=== PATIENT | male | born 1975 | race Caucasian/White ===

== ENCOUNTER 2019-04-19 04:58 | Inpatient (IN) | payer OTHER ==
[2019-04-19] MEDS ORDERED: SODIUM CHLORIDE 0.9% 1,000 ML IV ONE ×2 (05:22→06:50)
--- NOTE | 2019-04-19 05:25 | ED Physician Documentation ---
PD HPI ABD PAIN - Stated complaint Stated Complaint: BLOATING/DIARRHEA - Chief complaint Chief Complaint: Abd Pain - History obtained from History obtained from: Patient, Family - History of Present Illness Timing - onset: How many days ago (3) Timing - duration: Days (3) Timing - details: Gradual onset, Still present Quality: Cramping, Sharp, Fullness/distended, Pain Location: All over / everywhere Improved by: Laying still Worsened by: Position, Palpation Associated symptoms: Diarrhea. No: Fever, Nausea, Vomiting Similar symptoms before: Has not had sx before Recently seen: Not recently seen - Additional information Additional information: 43-year-old male with a history of diabetes has developed acute diarrhea and abdominal bloating gas and pain. He has generalized pain he has not had specific pain similar to this previously. He does not recall eating anything that he is sensitive to and he has not noted any blood in his diarrhea. He has not been into see his doctor in over 2 years and he is on some diabetic medications. He has been checking his sugar recently has been about 200. Review of Systems Constitutional: reports: Fatigue. denies: Fever, Chills Eyes: denies: Decreased vision Ears: denies: Ear pain Throat: denies: Sore throat Cardiac: denies: Chest pain / pressure, Palpitations Respiratory: denies: Dyspnea, Cough GI: reports: Abdominal Pain, Abdominal Swelling, Diarrhea. denies: Nausea, Vomiting, Bloody / black stool : denies: Dysuria, Frequency Skin: denies: Rash Musculoskeletal: denies: Neck pain, Back pain, Extremity pain Neurologic: denies: Generalized weakness, Focal weakness, Numbness PD PAST MEDICAL HISTORY - Past Medical History Cardiovascular: Hypertension Respiratory: CPAP use Endocrine/Autoimmune: Type 2 diabetes GI: None : None HEENT: None Psych: None Musculoskeletal: None Derm: None - Past Surgical History Past Surgical History: No - Present Medications Home Medications: Ambulatory Orders Medication Instructions Recorded Confirmed Lisinopril 0.5 mg PO DAILY 03/31/16 Glipizide [Glipizide Xl] 0.5 mg PO DAILY 04/19/19 04/19/19 - Allergies Allergies/Adverse Reactions: Allergies Allergy/AdvReac Type Severity Reaction Status Date / Time metformin Allergy Unknown Verified 04/19/19 05:04 - Social History Does the pt smoke?: No Smoking Status: Never smoker Does the pt drink ETOH?: No Does the pt have substance abuse?: No - Immunizations Immunizations are current?: Yes - POLST Patient has POLST: No PD ED PE NORMAL - Vitals Vital signs reviewed: Yes (hypertensive ) - General General: Alert and oriented X 3, Well developed/nourished, Other (welfare centre manager tone and flat affect belie pain) - HEENT HEENT: Atraumatic, PERRL, EOMI - Neck Neck: Supple, no meningeal sign, No bony TTP - Cardiac Cardiac: RRR, No murmur - Respiratory Respiratory: No respiratory distress, Clear bilaterally - Abdomen Abdomen: Other (The abdomen is distended bowel sounds are scant, it generally tender without guarding or rebound. ) - Back Back: No CVA TTP, No spinal TTP - Derm Derm: Normal color, Warm and dry, No rash - Extremities Extremities: No deformity, No edema, No calf tenderness / cord - Neuro Neuro: Alert and oriented X 3, commercial announcer 2-12 intact, No motor deficit, No sensory deficit, Normal speech Eye Opening: Spontaneous Motor: Obeys Commands Verbal: Oriented GCS Score: 15 - Psych Psych: Normal mood, Other (affect is flat.) Results - Vitals Vitals: Vital Signs - 24 hr 04/19/19 04/19/19 05:01 06:12 Temperature 35.9 C L Heart Rate 96 84 Respiratory 18 Rate Blood Pressure 158/98 H 146/99 H O2 Saturation 97 97 Oxygen O2 Source Room air - Labs Labs: Laboratory Tests 04/19/19 04/19/19 04/19/19 05:20 05:20 05:20 WBC 5.2 RBC 5.40 Hgb 15.4 Hct 44.0 MCV 81.4 MCH 28.5 MCHC 35.0 RDW 12.9 Plt Count 245 MPV 6.6 L Neut # (Auto) 3.3 Lymph # (Auto) 1.2 L [place] # (Auto) 0.6 Eos # (Auto) 0.1 Baso # (Auto) 0.0 Absolute Nucleated RBC 0.00 Nucleated RBC % 0.1 Sodium 135 Potassium 3.7 Chloride 101 Carbon Dioxide 23 Anion Gap 11.0 BUN 13 Creatinine 0.7 Estimated GFR (MDRD) 122 Glucose 272 H Lactic Acid Calcium 8.8 Total Bilirubin 1.3 H AST 118 H ALT 112 H Alkaline Phosphatase 119 Troponin I < 0.04 Total Protein 7.0 Albumin 3.7 Globulin 3.3 Albumin/Globulin Ratio 1.1 Lipase 25 04/19/19 05:36 WBC RBC Hgb Hct MCV MCH MCHC RDW Plt Count MPV Neut # (Auto) Lymph # (Auto) [place] # (Auto) Eos # (Auto) Baso # (Auto) Absolute Nucleated RBC Nucleated RBC % Sodium Potassium Chloride Carbon Dioxide Anion Gap BUN Creatinine Estimated GFR (MDRD) Glucose Lactic Acid 0.8 Calcium Total Bilirubin AST ALT Alkaline Phosphatase Troponin I Total Protein Albumin Globulin Albumin/Globulin Ratio Lipase - Rads (name of study) CT abd/pel with Radiology: Prelim report reviewed (Impression: Small bowel dilation, with an abrupt transition in the distal ileum, suggestive of mechanical obstruction. Moderate amount of free fluid in the pelvis. Normal appendix.), EMP read indepedently, See rad report Procedures - IVC sono (time) 0520 Bedside IVC sono: IVC measures (cm) (0.83), IVC collapsed c insp (cm) (complete), Dehydration (est 2 liter deficit.) PD MEDICAL DECISION MAKING - ED course Complexity details: reviewed old records, reviewed results, re-evaluated patient, considered differential, d/w patient, d/w family ED course: 43-year-old type II diabetic male with diarrhea abdominal pain and bloating is dehydrated on interrogation of the inferior vena cava and is administered intravenous saline. He is not nauseated he has not had any blood in his stool he does have pain in general and a CT scan is ordered. CT shows obstruction at the distal illeum and free fluid in the pelvis with deflated colon. The surgeon Olivier is consulted in the case by phone and recommends admission to the hospitalist. Departure - Departure Disposition: 66 [facility] DC/Xfer Clinical Impression: Dehydration, Small bowel obstruction
[2019-04-19 05:29] LABS: BASOPHILS % (AUTO) 0.5 %; EOSINOPHILS # (AUTO) 0.1 10^3/uL (0.0-0.7); HGB - HEMOGLOBIN 15.4 g/dL (14.0-18.0); LYMPHOCYTES # (AUTO) 1.2 10^3/uL (1.5-3.5); LYMPHOCYTES % (AUTO) 22.4 %; MEAN CORPUSCULAR HEMOGLOBIN 28.5 pg (27.0-31.0); MEAN CORPUSCULAR VOLUME 81.4 fL (80.0-94.0); MEAN PLATELET VOLUME 6.6 fL (7.4-11.4); MONOCYTES # (AUTO) 0.6 10^3/uL (0.0-1.0); NEUTROPHILS # (AUTO) 3.3 10^3/uL (1.5-6.6); NEUTROPHILS % (AUTO) 64.1 %; PLT - PLATELET COUNT 245 10^3/uL (130-450); RED CELL DISTRIBUTION WIDTH 12.9 % (12.0-15.0); WHITE BLOOD COUNT 5.2 x10^3/uL (4.8-10.8)
[2019-04-19] MEDS ORDERED: IOVERSOL 320 100 ML VIAL IVP ONE ×2 (05:40→06:10)
[2019-04-19 05:42] LABS: ALBUMIN 3.7 g/dL (3.2-5.5); ALBUMIN/GLOBULIN RATIO 1.1 (1.0-2.2); BILIRUBIN,TOTAL 1.3 mg/dL (0.2-1.0); CALCIUM 8.8 mg/dL (8.5-10.3); CREATININE 0.7 mg/dL (0.6-1.2)
--- NOTE | 2019-04-19 06:30 | CT Report ---
Reason: abdominal distention bloating pain Procedure Date: 04/19/2019 Accession Number: [id number] / [id number] Procedure: CT - Abdomen/Pelvis W CPT Code: FULL RESULT: EXAM: CT ABDOMEN AND PELVIS EXAM DATE: 04/19/2019 06:12 AM. CLINICAL HISTORY: Abdominal distention bloating pain. COMPARISONS: ABDOMEN/PELVIS ANGIO 09/12/2016 12:16 PM. TECHNIQUE: Routine helical CT imaging was performed through the abdomen and pelvis. IV contrast: [id number] 100ML. Enteric contrast: No. Reconstructions: Coronal and sagittal. In accordance with CT protocol optimization, one or more of the following dose reduction techniques were utilized for this exam: automated exposure control, adjustment of mA and/or KV based on patient size, or use of iterative reconstructive technique. FINDINGS: Lung Bases: Unremarkable. Liver: Normal. No masses. Gallbladder/Bile Ducts: Unremarkable. Spleen: Normal. Pancreas: Normal. Adrenal Glands: Normal. Kidneys: Normal. No masses or hydronephrosis. Peritoneal Cavity/Bowel: Small bowel dilatation, with an abrupt transition in the distal ileum in the right lower quadrant, suggestive of mechanical obstruction. No colonic dilatation. The appendix is well visualized and normal. Pelvic Organs: Moderate amount of free fluid in the pelvis. No pelvic adenopathy. Vasculature: No aneurysms or other significant abnormality. Bones: No significant abnormality. Other: None. IMPRESSION: Small bowel dilatation, with an abrupt transition in the distal ileum, suggestive of mechanical obstruction. Moderate amount of free fluid in the pelvis. Normal appendix. RADIA
[2019-04-19] MEDS ORDERED: ONDANSETRON 4 MG/2 ML VIAL IVP PRN (07:42)
[2019-04-19] MEDS ORDERED: MORPHINE 2 MG/ML CARPUJECT IVP PRN (07:42)
[2019-04-19] MEDS ORDERED: ACETAMINOPHEN 325 MG TABLET PO PRN (07:42)
[2019-04-19] MEDS ORDERED: hydrALAZINE INJ 20 MG/ML VIAL IVP PRN (07:49)
[2019-04-19 08:32] LABS: BILIRUBIN,URINE NEGATIVE (NEGATIVE); GLUCOSE, URINE (UA) 500 mg/dL (NEGATIVE); KETONES,URINE (UA) 15 mg/dL (NEGATIVE); LEUKOCYTE ESTERASE, URINE NEGATIVE (NEGATIVE); NITRITE,URINE NEGATIVE (NEGATIVE); OCCULT BLOOD,URINE TRACE-LYSE (NEGATIVE); PH,URINE 5.5 PH (5.0-7.5); PROTEIN,URINE TRACE mg/dL (NEGATIVE); UROBILINOGEN,URINE 1 (NORMAL) E.U./dL (NORMAL)
[2019-04-19 08:33] LABS: CLARITY,URINE CLEAR (CLEAR)
--- NOTE | 2019-04-19 08:37 | HISTORY & PHYSICAL EXAMINATION ---
Chief Complaint - Chief Complaint Chief Complaint: abdominal pain History of Present Illness - History of Present Illness HPI Comment/Other: Mr. Garces is a 43-year-old male with a PMH significant of diabetes, HTN, obstructive sleep apnea on CPAP, obese, multiple syncopal episodes in the past, who present ER complain of diffused abdominal pain. Pt report he has developed acute diarrhea, and abdominal bloating gas and pain since this Wednesday. His last bowel movement is yesterday 3pm. He report he has nausea but no vomiting. Upon examination, pt has soft bowel but with mild reduced bowel sound, and mild tenderness on whole abdomen without rebound or guarding pain. Pt report this generalized abdominal pain is the first he had. He does not recall eating anything and he has not noted any blood in his diarrhea. He denies chest pain, syncope, cough, shortness of breath, fever, chill, headache, dysuria, hematuria, hematemesis. CT of abdomen reveals obstruction at the distal illeum and free fluid in the pelvis with deflated colon. The surgeon was consulted in the case by phone and recommended admission. History - Past Medical History Cardiovascular: reports: Hypertension Respiratory: reports: CPAP use Endocrine/Autoimmune: reports: Type 2 diabetes GI: reports: None : reports: None HEENT: reports: None Psych: reports: None Musculoskeletal: reports: None Derm: reports: None MRSA Hx?: No - POLST Patient has POLST: No Meds/Allgy - Home Medications Home Medications: Ambulatory Orders Medication Instructions Recorded Confirmed Lisinopril 0.5 mg PO DAILY 03/31/16 Glipizide [Glipizide Xl] 0.5 mg PO DAILY 04/19/19 - Allergies Allergies/Adverse Reactions: Allergies Allergy/AdvReac Type Severity Reaction Status Date / Time metformin Allergy Unknown Verified 04/19/19 05:04 Review of Systems - Constitutional Constitutional: denies: Fatigue, Fever, Chills, Malaise, Weakness, Poor appetite, Diaphoresis, Night sweats - Eyes Eyes: denies: Pain, Irritation, Amaurosis, Blurred vision, Spots in vision, Field loss, Vision loss, Dipolpia - Ears, Nose & Throat Ears, Nose & Throat: denies: Ear pain, Hearing loss, Hearing aids, Tinnitus, Vertigo, Nasal pain, Nasal discharge, Nosebleeds, Nasal obstruction, Nasal congestion, Postnasal drainage, Dentures, Sore throat, Hoarseness, Mouth lesions, Bleeding gums - Cardiovascular Cariovascular: denies: Irregular heart rate, Palpitations, Chest pain, Edema, Lightheadedness, Syncope, Exertional dyspnea, Decr. exercise tolerance - Respiratory Respiratory: denies: Cough, Sputum production, Wheezing, Snoring, Hemoptysis, Orthopnea, SOB at rest, SOB with exertion, Apnea, Stridor - Gastrointestinal Gastrointestinal: reports: Abdominal pain, Diarrhea, Nausea. denies: Abdominal distention, Constipation, Change in bowel habits, Rectal bleeding, Black stools, Bloody stools, Vomiting, Bile emesis, Conrad blood emesis, Coffee grounds emesis, Reflux/heartburn, Bloating - Genitourinary Genitourinary: denies: Dysuria, Frequency, Urgency, Hematuria, Incontinence, Flank pain, Nocturia, Urethral discharge - Musculoskeletal Musculoskeletal: denies: Muscle pain, Back pain, Muscle aches, Stiffness, Limited range of motion, Muscle weakness, Gout, Joint pain - Integumentary Integumentary: denies: Rash, Pruritis, Lesions, Dryness, Lumps, Acne, Pigment changes, Nail changes - Neurological Neurological: denies: General weakness, Focal weakness, Headache, Dizziness, Numbness, Memory problems, Pre-existing deficit, Abnormal gait, Seizures, Incoordination, Slurred speech - Psychiatric Psychiatric: denies: Depression, Anxiety, Suicidal, Delusions, Hallucinations, Homicidal - Endocrine Endocrine: denies: Polyuria, Polydypsia, Polyphagia, Intolerance to cold - Hematologic/Lymphatic Hematologic/Lymphatic: denies: Anemia, Bruising, Petechiae, Blood clots, Lymphadenopathy, Bleeding tendencies, Recurrent infections Exam - Vital Signs Reviewed Vital Signs: Yes Vital Signs: Vital Signs x48h Temp Pulse Resp BP Pulse Ox 04/19/19 06:12 84 146/99 H 97 04/19/19 05:01 35.9 C L 96 18 158/98 H 97 - Physical Exam General Appearance: positive: No acute distress, Alert. negative: Lethargic Eyes Bilateral: positive: Normal inspection, PERRL, No lid inflammation, Conjunctivae nml ENT: positive: ENT inspection nml, Pharynx nml, No signs of dehydration. negative: Purulent nasal drainage, Pharyngeal erythema, Oral lesions Neck: positive: Nml inspection, Thyroid nml, No JVD, Trachea midline. negative: Thyromegaly, Lymphadenopathy (R), Lymphadenopathy (L), Stiff neck, Swelling/bruising, Tracheal deviation Respiratory: positive: Chest non-tender, No respiratory distress, Breath sounds nml. negative: Wheezes, Rales, Rhonchi Cardiovascular: positive: Regular rate & rhythm, No murmur, No gallop. negative: Irregularly irregular, Extrasystoles, Tachycardia, Bradycardia, JVD present, Systolic murmur, Diastolic murmur Peripheral Pulses: positive: 2+ Abdomen: positive: Tenderness. negative: Non-tender, Nml bowel sounds (reduced bowel sound on all quadrants), No distention, Guarding, Rebound Back: positive: Nml inspection. negative: CVA tenderness (R), CVA tenderness (L) Skin: positive: Color nml, No rash, Warm, Dry. negative: Cyanosis, Diaphoresis, Pallor, Skin rash Extremities: positive: Non-tender, Full ROM, Nml appearance. negative: Calf tenderness, Joint swelling, Marii's sign/cords Neurologic/Psychiatric: positive: Oriented x3, Motor nml, Sensation nml, Mood/affect nml. negative: Weakness, Sensory loss, Facial droop, Slurred/abnml speech, Depressed mood/affect Sepsis Event Note (H) - Evaluation Current Stage of Sepsis: Ruled out Conclusion/Plan - Problem List (1) Small bowel obstruction Conclusion/Plan: CT of abdomen reveals obstruction at distal illieum. physical examination reveals reduced bowel sound and diffused mild abdominal pain. consult with surgeon bowel rest with IVF discuss with pt the care plan, strongly encourage pt ambulation for resolving the obstruction by himself pain control with Toradol first, reduce to use opioids for slowing the bowel movement side effect No NG tube now, pt has nausea feeling but without vomiting. (2) Abdominal pain Conclusion/Plan: It seems related to obstruction pain control with Toradol first bowel rest with IVF encourage pt walk Qualifiers: Abdominal location: lower abdomen Qualified Code(s): R10.30 - Lower abdominal pain, unspecified (3) DM2 (diabetes mellitus, type 2) Conclusion/Plan: pt did not take insulin at home yet, and took medication at home hold slide scale now because NPO ACHS and hypoglycemia protocol now check A1C (4) HTN (hypertension) Conclusion/Plan: it seems pt took Lisinopril at home. stable now. Hydralazine IV PRN now (5) Nausea alone Conclusion/Plan: pt report Nausea alone without vomiting No NG tube now use Reglan alone to control his nausea as needed now (6) Full code status Conclusion/Plan: pt request full code - Lab Results Fish Bones: 04/19/19 05:20 04/19/19 05:20 Core Measures - Anticipated LOS I expect patient to be DC'd or transferred within 96 hours.: Yes - DVT/VTE - Prophylaxis VTE/DVT Device ordered at admit?: Yes VTE/DVT Prophylaxis med ordered at admit?: Yes - Stroke - Rehab Assessment Rehab services assessment to be ordered?: Yes - AMI - Statin at Admit Aspirin Prescribed on Admit: Yes
[2019-04-19] MEDS ORDERED: METOCLOPRAMIDE 10 MG/2 ML VIAL IVP PRN (08:41)
[2019-04-19 08:53] LABS: HB2 TOTAL 16.7 g/dL; HEMOGLOBIN A1C 1.86 g/dL; HEMOGLOBIN A1C % 12.3 % (4.6-6.2)
[2019-04-19] MEDS: SODIUM CHLORIDE 0.9% 1,000 ML IV SCH ×3 (09:00→22:10)
[2019-04-19] MEDS ORDERED: POLYETHYLENE GLYCOL 3350 17 GM PACKET PO SCH (09:00)
[2019-04-19] MEDS ORDERED: KETOROLAC 15 MG/ML VIAL IVP PRN (09:03)
[2019-04-19] MEDS: SODIUM CHLORIDE FLUSH 0.9% 10 ML SYRINGE IVP SCH ×2 (09:17→16:59)
[2019-04-19] MEDS: SODIUM CHLORIDE FLUSH 0.9% 10 ML SYRINGE IVP PRN ×2 (09:17→22:10)
[2019-04-19] MEDS: PANTOPRAZOLE 40 MG VIAL IVP SCH (09:17)
--- NOTE | 2019-04-19 09:46 | CONSULTATION NOTE ---
Referring Provider Consult Date: 04/19/19 Chief Complaint - Chief Complaint Chief Complaint: abdominal pain History of Present Illness - History of Present Illness HPI Comment/Other: 43 yo man presenting with 3 days of abdominal distension, diarrhea, and nausea. Denies any other symptoms, sick contacts, or abdominal surgery. He received a CT in the ER concerning for a SBO. History - Past Medical History Cardiovascular: reports: Hypertension Respiratory: reports: CPAP use Endocrine/Autoimmune: reports: Type 2 diabetes GI: reports: None : reports: None HEENT: reports: None Psych: reports: None Musculoskeletal: reports: None Derm: reports: None MRSA Hx?: No - POLST Patient has POLST: No Meds/Allgy - Home Medications Home Medications: Ambulatory Orders Medication Instructions Recorded Confirmed Lisinopril 0.5 mg PO DAILY 03/31/16 Glipizide [Glipizide Xl] 0.5 mg PO DAILY 04/19/19 - Allergies Allergies/Adverse Reactions: Allergies Allergy/AdvReac Type Severity Reaction Status Date / Time metformin Allergy Unknown Verified 04/19/19 05:04 Review of Systems - Gastrointestinal Gastrointestinal: reports: Diarrhea, Nausea Exam - Vital Signs Vital Signs: Vital Signs x48h Temp Pulse Pulse Resp BP BP Pulse Ox 04/19/19 08:45 36.7 C 81 16 149/94 H 97 04/19/19 08:00 83 12 146/99 H 96 04/19/19 06:12 84 146/99 H 97 04/19/19 05:01 35.9 C L 96 18 158/98 H 97 - Physical Exam General Appearance: positive: No acute distress Eyes Bilateral: positive: Normal inspection Abdomen: positive: Non-tender (distended, tympanic) Conclusion/Plan - Diagnosis Diagnosis: ileus vs SBO - Plan Plan: Pt with abdominal distension and diarrhea. Pt is comfortable with normal vitals and labs. No features on CT concerning for bowel compromise. Plan for ga strograffin challenge to rule out obstruction. Most likely an enteritis. - Lab Results Fish Bones: 04/19/19 05:20 04/19/19 05:20
[2019-04-19] MEDS ORDERED: DIATR MEGLU/DIATRIZOATE SODIUM 120 ML BOTTLE PO ONE (10:15)
--- NOTE | 2019-04-19 12:31 | XRAY Report ---
Reason: SMALL BOWEL OBSTRUCTION Procedure Date: 04/19/2019 Accession Number: [id number] / [id number] Procedure: XR - SBFT Challenge Panel CPT Code: FULL RESULT: EXAM: ABDOMEN RADIOGRAPHY PART OF ORAL GASTROGRAFIN CHALLENGE WITH ABDOMINAL RADIOGRAPHIC FOLLOW THROUGH. EXAM DATE: 04/19/2019 10:34 AM. CLINICAL HISTORY: Small bowel obstruction. COMPARISON: None. TECHNIQUE: 1 view. FINDINGS: Bowel Gas Pattern: Dilated loops of small bowel with a caliber of up to 4.9 cm are identified with a small amount of gas seen in large bowel. Other: The patient was administered oral Gastrografin. Gastrografin is seen within the stomach and hyperdense contrast is seen within the bladder. IMPRESSION: Dilated loops of small bowel with gas seen in large bowel, this is a nonobstructive bowel gas pattern. RADIA
--- NOTE | 2019-04-19 15:56 | XRAY Report ---
Reason: 4 HOUR FILM Procedure Date: 04/19/2019 Accession Number: [id number] / [id number] Procedure: XR - No-Charge 1V Abdomen CPT Code: 69257 FULL RESULT: EXAM: ABDOMEN RADIOGRAPHY EXAM DATE: 04/19/2019 02:51 PM. CLINICAL HISTORY: 4-hour film. COMPARISON: ABDOMEN 1 VIEW 04/19/2019 10:34 AM. TECHNIQUE: 2 views. FINDINGS: Lung Bases: Unremarkable. Bowel Gas Pattern: Dilated loops of small bowel now contain oral contrast, maximum caliber 4.8 cm. Gas is again seen in large bowel, nonobstructive bowel gas pattern. Free Air: None. Other: None. IMPRESSION: Nonobstructive bowel gas pattern. Progression of contrast to the small bowel. RADIA
--- NOTE | 2019-04-19 20:35 | XRAY Report ---
Reason: 8 HOUR FILM Procedure Date: 04/19/2019 Accession Number: [id number] / [id number] Procedure: XR - No-Charge 1V Abdomen CPT Code: 18243 FULL RESULT: EXAM: ABDOMEN RADIOGRAPHY EXAM DATE: 04/19/2019 07:11 PM. CLINICAL HISTORY: 8 HOUR FILM. COMPARISON: ABDOMEN 1 VIEW 04/19/2019 2:34 PM. TECHNIQUE: 1 view. FINDINGS: Lung Bases: Not visualized. Bowel Gas Pattern: Continued progression of contrast to the distal small bowel, but no significant contrast in the colon. Small bowel continues to be dilated to about 4.9 cm. No colonic dilation. Small amount of stool. Other: None. IMPRESSION: Slow progression of contrast into the distal small bowel, with continued dilation most compatible with partial distal small bowel obstruction. RADIA
[2019-04-20 05:20] LABS: BASOPHILS % (AUTO) 0.7 %; EOSINOPHILS # (AUTO) 0.1 10^3/uL (0.0-0.7); EOSINOPHILS % (AUTO) 2.2 %; HGB - HEMOGLOBIN 14.4 g/dL (14.0-18.0); LYMPHOCYTES # (AUTO) 2.2 10^3/uL (1.5-3.5); LYMPHOCYTES % (AUTO) 47.8 %; MEAN CORPUSCULAR HEMOGLOBIN 28.1 pg (27.0-31.0); MEAN CORPUSCULAR HGB CONC 33.4 g/dL (32.0-36.0); MEAN CORPUSCULAR VOLUME 84.1 fL (80.0-94.0); MEAN PLATELET VOLUME 6.6 fL (7.4-11.4); MONOCYTES # (AUTO) 0.4 10^3/uL (0.0-1.0); MONOCYTES % (AUTO) 9.4 %; NEUTROPHILS # (AUTO) 1.9 10^3/uL (1.5-6.6); NEUTROPHILS % (AUTO) 39.9 %; PLT - PLATELET COUNT 254 10^3/uL (130-450); RED BLOOD COUNT 5.14 10^6/uL (4.70-6.10); WHITE BLOOD COUNT 4.7 x10^3/uL (4.8-10.8)
[2019-04-20 05:35] LABS: ALBUMIN 3.6 g/dL (3.2-5.5); ALBUMIN/GLOBULIN RATIO 1.1 (1.0-2.2); CALCIUM 8.7 mg/dL (8.5-10.3); CREATININE 0.7 mg/dL (0.6-1.2); MAGNESIUM 1.9 mg/dL (1.7-2.8); TOTAL PROTEIN 6.8 g/dL (6.7-8.2)
[2019-04-20] MEDS: SODIUM CHLORIDE FLUSH 0.9% 10 ML SYRINGE IVP PRN (06:35)
[2019-04-20] MEDS: SODIUM CHLORIDE 0.9% 1,000 ML IV SCH (06:35)
[2019-04-20] MEDS: PANTOPRAZOLE 40 MG VIAL IVP SCH (06:35)
[2019-04-20] MEDS: SODIUM CHLORIDE FLUSH 0.9% 10 ML SYRINGE IVP SCH ×2 (06:50→10:28)
[2019-04-20] MEDS ORDERED: ONDANSETRON 4 MG/2 ML VIAL IVP PRN (07:36)
[2019-04-20] MEDS ORDERED: ENOXAPARIN 40 MG/0.4 ML SYRINGE SUBQ SCH (09:00)
--- NOTE | 2019-04-20 09:14 | PROVIDER PROGRESS NOTE ---
Subjective - Prog Note Date Prog Note Date: 04/20/19 Prog Note Time: 09:13 - Subjective Pt reports feeling: Improved (Having BMs. Remains distended, pain improved.) Objective - Vital Signs/Intake & Output Vital Signs: Vital Signs x48h Temp Pulse Resp BP Pulse Ox 04/20/19 08:00 36.8 C 79 17 140/88 H 96 04/20/19 05:11 77 151/96 H 04/20/19 04:44 36.7 C 82 16 97 Intake & Output: Intake & Output 04/17/19 04/18/19 04/19/19 04/20/19 23:59 23:59 23:59 23:59 Intake Total 3190.333 970 Balance 3190.333 970 - Lab Results Fish Bones: 04/20/19 04:30 04/20/19 04:30 Other Labs: Lab Results x24hrs 04/20/19 04/20/19 04/20/19 Range/Units 05:15 04:30 04:30 WBC 4.7 L (4.8-10.8) x10^3/uL RBC 5.14 (4.70-6.10) 10^6/uL Hgb 14.4 (14.0-18.0) g/dL Hct 43.2 (42.0-52.0) % MCV 84.1 (80.0-94.0) fL MCH 28.1 (27.0-31.0) pg MCHC 33.4 (32.0-36.0) g/dL RDW 13.0 (12.0-15.0) % Plt Count 254 (130-450) 10^3/uL MPV 6.6 L (7.4-11.4) fL Neut # (Auto) 1.9 (1.5-6.6) 10^3/uL Lymph # (Auto) 2.2 (1.5-3.5) 10^3/uL [place] # (Auto) 0.4 (0.0-1.0) 10^3/uL Eos # (Auto) 0.1 (0.0-0.7) 10^3/uL Baso # (Auto) 0.0 (0.0-0.1) 10^3/uL Absolute Nucleated RBC 0.01 x10^3/uL Nucleated RBC % 0.2 /100WBC Sodium 141 (135-145) mmol/L Potassium 3.8 (3.5-5.0) mmol/L Chloride 106 (101-111) mmol/L Carbon Dioxide 25 (21-32) mmol/L Anion Gap 10.0 (6-13) BUN 18 (6-20) mg/dL Creatinine 0.7 (0.6-1.2) mg/dL Estimated GFR (MDRD) 122 (>89) Glucose 175 H (70-100) mg/dL POC Whole Bld Glucose 171 H (70 - 100) mg/dL Glycated Hemoglobin (4.6-6.2) % Estim Average Glucose (70-100) Calcium 8.7 (8.5-10.3) mg/dL Magnesium 1.9 (1.7-2.8) mg/dL Total Bilirubin 1.0 (0.2-1.0) mg/dL AST 47 H (10-42) IU/L ALT 99 H (10-60) IU/L Alkaline Phosphatase 98 (42-121) IU/L Total Protein 6.8 (6.7-8.2) g/dL Albumin 3.6 (3.2-5.5) g/dL Globulin 3.2 (2.1-4.2) g/dL Albumin/Globulin Ratio 1.1 (1.0-2.2) Stl Occult Blood (IFOB) (NEGATIVE) Serum Ketones (NEGATIVE) 04/19/19 04/19/19 04/19/19 Range/Units 23:30 21:00 17:59 WBC (4.8-10.8) x10^3/uL RBC (4.70-6.10) 10^6/uL Hgb (14.0-18.0) g/dL Hct (42.0-52.0) % MCV (80.0-94.0) fL MCH (27.0-31.0) pg MCHC (32.0-36.0) g/dL RDW (12.0-15.0) % Plt Count (130-450) 10^3/uL MPV (7.4-11.4) fL Neut # (Auto) (1.5-6.6) 10^3/uL Lymph # (Auto) (1.5-3.5) 10^3/uL [place] # (Auto) (0.0-1.0) 10^3/uL Eos # (Auto) (0.0-0.7) 10^3/uL Baso # (Auto) (0.0-0.1) 10^3/uL Absolute Nucleated RBC x10^3/uL Nucleated RBC % /100WBC Sodium (135-145) mmol/L Potassium (3.5-5.0) mmol/L Chloride (101-111) mmol/L Carbon Dioxide (21-32) mmol/L Anion Gap (6-13) BUN (6-20) mg/dL Creatinine (0.6-1.2) mg/dL Estimated GFR (MDRD) (>89) Glucose (70-100) mg/dL POC Whole Bld Glucose 189 H 185 H (70 - 100) mg/dL Glycated Hemoglobin (4.6-6.2) % Estim Average Glucose (70-100) Calcium (8.5-10.3) mg/dL Magnesium (1.7-2.8) mg/dL Total Bilirubin (0.2-1.0) mg/dL AST (10-42) IU/L ALT (10-60) IU/L Alkaline Phosphatase (42-121) IU/L Total Protein (6.7-8.2) g/dL Albumin (3.2-5.5) g/dL Globulin (2.1-4.2) g/dL Albumin/Globulin Ratio (1.0-2.2) Stl Occult Blood (IFOB) NEGATIVE (NEGATIVE) Serum Ketones (NEGATIVE) 04/19/19 04/19/19 Range/Units 05:20 05:20 WBC (4.8-10.8) x10^3/uL RBC (4.70-6.10) 10^6/uL Hgb (14.0-18.0) g/dL Hct (42.0-52.0) % MCV (80.0-94.0) fL MCH (27.0-31.0) pg MCHC (32.0-36.0) g/dL RDW (12.0-15.0) % Plt Count (130-450) 10^3/uL MPV (7.4-11.4) fL Neut # (Auto) (1.5-6.6) 10^3/uL Lymph # (Auto) (1.5-3.5) 10^3/uL [place] # (Auto) (0.0-1.0) 10^3/uL Eos # (Auto) (0.0-0.7) 10^3/uL Baso # (Auto) (0.0-0.1) 10^3/uL Absolute Nucleated RBC x10^3/uL Nucleated RBC % /100WBC Sodium (135-145) mmol/L Potassium (3.5-5.0) mmol/L Chloride (101-111) mmol/L Carbon Dioxide (21-32) mmol/L Anion Gap (6-13) BUN (6-20) mg/dL Creatinine (0.6-1.2) mg/dL Estimated GFR (MDRD) (>89) Glucose (70-100) mg/dL POC Whole Bld Glucose (70 - 100) mg/dL Glycated Hemoglobin 12.3 H (4.6-6.2) % Estim Average Glucose 306 H (70-100) Calcium (8.5-10.3) mg/dL Magnesium (1.7-2.8) mg/dL Total Bilirubin (0.2-1.0) mg/dL AST (10-42) IU/L ALT (10-60) IU/L Alkaline Phosphatase (42-121) IU/L Total Protein (6.7-8.2) g/dL Albumin (3.2-5.5) g/dL Globulin (2.1-4.2) g/dL Albumin/Globulin Ratio (1.0-2.2) Stl Occult Blood (IFOB) (NEGATIVE) Serum Ketones NEGATIVE (NEGATIVE) Sepsis Event Note (H) - Evaluation Current Stage of Sepsis: Ruled out Assessment/Plan - Problem List (1) Small bowel obstruction Impression: Follow up KUBs show contrast in the colon, ruling out an obstruction. No surgical intervention indicated.
--- NOTE | 2019-04-20 11:59 | XRAY Report ---
Reason: 24 HOUR FILM SBC Procedure Date: 04/20/2019 Accession Number: [id number] / [id number] Procedure: XR - No-Charge 1V Abdomen CPT Code: 70013 FULL RESULT: EXAM: ABDOMEN RADIOGRAPHY EXAM DATE: 04/20/2019 11:43 AM. CLINICAL HISTORY: 24 hour film SBC. COMPARISON: ABDOMEN 1 VIEW 04/19/2019 10:25 PM. TECHNIQUE: 2 views. FINDINGS: Lung Bases: Unremarkable. Bowel Gas Pattern: Dilated loops of small bowel with a caliber of up to 4.8 cm are redemonstrated. Oral contrast has progressed into the large bowel which also contains gas, nonobstructive bowel gas pattern. Free Air: None. Other: None. IMPRESSION: Nonobstructive bowel gas pattern. Progression of oral contrast to the large bowel. RADIA
--- NOTE | 2019-04-20 12:03 | XRAY Report ---
Reason: 12 HOUR FILM Procedure Date: 04/19/2019 Accession Number: [id number] / [id number] Procedure: XR - No-Charge 1V Abdomen CPT Code: 94015 FULL RESULT: EXAM: ABDOMEN RADIOGRAPHY EXAM DATE: 04/19/2019 10:39 PM. CLINICAL HISTORY: 12 HOUR FILM. COMPARISON: ABDOMEN 1 VIEW 04/19/2019 6:55 PM. TECHNIQUE: Multiple supine views. FINDINGS: Oral contrast is seen throughout dilated small bowel loops as well as the colon. IMPRESSION: No evidence of complete small bowel obstruction, as oral contrast is now present in the colon 12 hours. Persistent dilation of small bowel loops. RADIA
[2019-04-20] MEDS ORDERED: LISINOPRIL 5 MG TABLET PO SCH (13:00)
[2019-04-20] MEDS ORDERED: SIMETHICONE CHEW 80 MG TABLET PO SCH (14:44)
--- NOTE | 2019-04-20 15:07 | Discharge Plan ---
Discharge Plan Disposition: Home, Self Care Condition: Poor Prescriptions: Dicyclomine [Bentyl] 20 mg PO QID PRN #15 capsule PRN Reason: Abdominal Pain glipiZIDE ER [Glucotrol Xl] 5 mg PO QDBREAKFAST #20 tablet Simethicone [Gas Relief] 125 mg PO Q6H PRN #15 capsule PRN Reason: Gas Diet: Diabetic Activity Restrictions: Activity as Tolerated Shower Restrictions: No (fall precaution) Instruction Topics: Simethicone chewable tablets, Glipizide tablets, Dicyclomine tablets or capsules, Obstruction Sm Bowel, Diet Low Residue, Hypoglycemia, Diabetes Healthy Meals, Diabetes Carbs, Diabetes Eating Out, Blood Sugar Manage Exercise Additional Instructions or Follow Up instructions: You may followup your PCP in one week. Your small bowel obstruction was resolved by your own, please continue keep activity/exercise. Your Glipizide dosage increased to 5mg daily, please precaution of hypoglycemia and discuss with PCP for further management of your DM. Should your symptoms return or worsen, you may present ER, call 911 or your PCP for help No Smoking: If you smoke, Please STOP! Call for help.
[2019-04-20] MEDS ORDERED: DICYCLOMINE 10 MG CAPSULE PO PRN (15:18)
--- NOTE | 2019-04-20 15:20 | DISCHARGE SUMMARY ---
"Discharge Summary Discharge Date: 04/20/19 Discharging Provider: TUCKER Condition at Discharge: Poor Discharge Disposition: 01 Home, Self Care Discharge Facility Name: home - DIAGNOSES Admission Diagnoses: (1) Small bowel obstruction (2) Abdominal pain (3) DM2 (diabetes mellitus, type 2) (4) HTN (hypertension) (5) Nausea alone Discharge Diagnoses with Status of Each Condition: (1) Small bowel obstruction (2) Abdominal pain (3) DM2 (diabetes mellitus, type 2) (4) HTN (hypertension) (5) Nausea alone - HPI History of Present Illness: Mr. Garces is a 43-year-old male with a PMH significant of diabetes, HTN, obstructive sleep apnea on CPAP, obese, multiple syncopal episodes in the past, who present ER complain of diffused abdominal pain. Pt report he has developed acute diarrhea, and abdominal bloating gas and pain since this Wednesday. His last bowel movement is yesterday 3pm. He report he has nausea but no vomiting. Upon examination, pt has soft bowel but with mild reduced bowel sound, and mild tenderness on whole abdomen without rebound or guarding pain. Pt report this generalized abdominal pain is the first he had. He does not recall eating anything and he has not noted any blood in his diarrhea. He denies chest pain, syncope, cough, shortness of breath, fever, chill, headache, dysuria, hematuria, hematemesis. CT of abdomen reveals obstruction at the distal illeum and free fluid in the pelvis with deflated colon. The surgeon was consulted in the case by phone and recommended admission. - CONSULTS | PROCEDURES Consultations: GI surgeon, Dr. Falcon Procedures: no procedure needed - HOSPITAL COURSE Hospital Course: (1) Small bowel obstruction resolved. pt had several bowel movement in hospital after treatment, image studies also reveals pt's SBO is resolved. pt's SBO is resolved by his own, no intervention needed. pt had regular diet, and tolerated (2) Abdominal pain pt report he has mild abdominal cramp after he walked intensively. Pt is prescribed Bentyl and simethicone PRN (3) DM2 (diabetes mellitus, type 2) pt still want to have medication to control his DM. Increase Glipizide dosage to 5mg daily. discussed with pt about the side effect of Glipizide including hypoglycemia, pt verbally state he understand the side effects. followup PCP (4) HTN (hypertension) stable, resume home meds, followup PCP (5) Nausea alone resolved - ALLERGIES Allergies/Adverse Reactions: Allergies Allergy/AdvReac Type Severity Reaction Status Date / Time metformin Allergy Unknown Verified 04/19/19 05:04 - MEDICATIONS Home Medications: Ambulatory Orders Medication Instructions Recorded Confirmed Lisinopril [Prinivil] 5 mg PO DAILY 04/19/19 04/19/19 Dicyclomine [Bentyl] 20 mg PO QID PRN #15 capsule 04/20/19 Simethicone [Gas Relief] 125 mg PO Q6H PRN #15 capsule 04/20/19 glipiZIDE ER [Glucotrol Xl] 5 mg PO QDBREAKFAST #20 tablet 04/20/19 - PHYSICAL EXAM AT DISCHARGE General Appearance: positive: No acute distress, Alert. negative: Lethargic Eyes Bilateral: positive: Normal inspection, PERRL, No lid inflammation, Conjunctivae nml ENT: positive: ENT inspection nml, Pharynx nml, No signs of dehydration. negative: Purulent nasal drainage, Pharyngeal erythema, Oral lesions Neck: positive: Nml inspection, Thyroid nml, No JVD, Trachea midline. negative: Thyromegaly, Lymphadenopathy (R), Lymphadenopathy (L), Stiff neck, Swelling/bruising, Tracheal deviation Respiratory: positive: Chest non-tender, No respiratory distress, Breath sounds nml. negative: Wheezes, Rales, Rhonchi Cardiovascular: positive: Regular rate & rhythm, No murmur, No gallop. negative: Irregularly irregular, Extrasystoles, Tachycardia, Bradycardia, JVD present, Systolic murmur, Diastolic murmur Peripheral Pulses: positive: 2+ Abdomen: positive: Non-tender, No organomegaly, Nml bowel sounds, No distention. negative: Tenderness, Guarding, Rebound Back: positive: Nml inspection. negative: CVA tenderness (R), CVA tenderness (L) Skin: positive: Color nml, No rash, Warm, Dry. negative: Cyanosis, Diaphoresis, Pallor Extremities: positive: Non-tender, Full ROM, Nml appearance. negative: Calf tenderness, Joint swelling, Marii's sign/cords Neurologic/Psychiatric: positive: Oriented x3, Motor nml, Sensation nml, Mood/affect nml. negative: Weakness, Sensory loss, Facial droop, Slurred/abnml speech, Depressed mood/affect - LABS Result Diagrams: 04/20/19 04:30 04/20/19 04:30 - SEPSIS Current Stage of Sepsis: Ruled out - FOLLOW UP Follow Up: You may followup your PCP in one week. Your small bowel obstruction was resolved by your own, please continue keep activity/exercise. Your Glipizide dosage increased to 5mg daily, please precaution of hypoglycemia and discuss with PCP for further management of your DM. Should your symptoms return or worsen, you may present ER, call 911 or your PCP for help - TIME SPENT Time Spent in Discharge (Minutes): 60"
[2019-04-20 15:44] VITALS: BP 144/94
== END 2019-04-20 16:03 | disposition home or self-care (01) | DRG 390 ==
LOC: ED 04:58 → MS2 07:42
PROVIDERS: ADMIT Nurse Practitioner Gerontology; ATTEND Nurse Practitioner Gerontology
DX: K56.609 Unspecified intestinal obstruction, unspecified as to partial versus complete obstruction (principal); E86.0 Dehydration; E11.9 Type 2 diabetes mellitus without complications; I10 Essential (primary) hypertension; G47.33 Obstructive sleep apnea (adult) (pediatric); Z79.84 Long term (current) use of oral hypoglycemic drugs
CPT/HCPCS: 36415; 74177; 74250; 80053; 81003; 82009; 82274; 83036; 83605; 83690; 83735; 84484; 85025; 99284; A9270; Q9963; Q9967; 74018; 81001; 87086; 96360; 96361

== ENCOUNTER 2019-12-24 16:23 | Emergency (ER) | payer OTHER ==
[2019-12-24] MEDS ORDERED: HYDROmorphone 1 MG/ML CARPUJECT IVP STA (16:49)
[2019-12-24] MEDS ORDERED: SODIUM CHLORIDE 0.9% 1,000 ML IV ONE (16:49)
--- NOTE | 2019-12-24 16:52 | ED Physician Documentation ---
PD HPI ABD PAIN - Stated complaint Stated Complaint: ABD PAIN, NAUSEA, DIARRHEA - Chief complaint Chief Complaint: Abd Pain - History obtained from History obtained from: Patient - History of Present Illness Timing - onset: Other (44-year-old gentleman without history of abdominal surgeries but did have a conservatively managed bowel obstruction. He has had right-sided abdominal pain radiating to the back since Wednesday. Its associated with vomiting and diarrhea all the vomiting is better now and he is not nauseous anymore but the diarrhea continues. He was seen on the day of onset, 5 days ago and had a contrast-enhanced CT and labs done reportedly from him without pertinent positive findings, but we will try to get primary results from [place]. Despite that the pain and diarrhea has continued. No recent travel. No fevers. He has been fatigued. No blood in the bowel movements. No urinary complaints.) Review of Systems Ten Systems: 10 systems reviewed and negative Constitutional: reports: Fatigue. denies: Fever, Chills Cardiac: denies: Chest pain / pressure, Palpitations Respiratory: denies: Dyspnea, Cough GI: reports: Abdominal Pain, Nausea (gone), Diarrhea. denies: Hematemesis, Bloody / black stool : denies: Dysuria PD PAST MEDICAL HISTORY - Past Medical History Cardiovascular: Hypertension Respiratory: CPAP use Endocrine/Autoimmune: Type 2 diabetes GI: None : None HEENT: None Psych: None Musculoskeletal: None Derm: None - Past Surgical History Past Surgical History: No - Present Medications Home Medications: Ambulatory Orders Medication Instructions Recorded Confirmed Lisinopril [Prinivil] 5 mg PO DAILY 04/19/19 04/19/19 Dicyclomine [Bentyl] 20 mg PO QID PRN #15 capsule 04/20/19 Simethicone [Gas Relief] 125 mg PO Q6H PRN #15 capsule 04/20/19 glipiZIDE ER [Glucotrol Xl] 5 mg PO QDBREAKFAST #20 tablet 04/20/19 Azithromycin 2 tab PO DAILY #4 tablet 12/24/19 Hydrocodone/Acetaminophen 1 - 2 each PO Q6H PRN #7 tablet 12/24/19 [Hydrocodon-Acetaminophen 5-325] - Allergies Allergies/Adverse Reactions: Allergies Allergy/AdvReac Type Severity Reaction Status Date / Time metformin Allergy Unknown Verified 12/24/19 16:34 - Social History Does the pt smoke?: No Smoking Status: Never smoker Does the pt drink ETOH?: No Does the pt have substance abuse?: No - Family History Family history: reports: Non contributory - Immunizations Immunizations are current?: Yes - POLST Patient has POLST: No PD ED PE NORMAL - Vitals Vital signs reviewed: Yes - General General: Alert and oriented X 3, No acute distress - HEENT HEENT: PERRL, EOMI - Neck Neck: Supple, no meningeal sign, No bony TTP - Cardiac Cardiac: RRR, No murmur - Respiratory Respiratory: No respiratory distress, Clear bilaterally - Abdomen Abdomen: Other (Quite tender in the right mid abdomen and right lower quadrant without surgical signs or skin changes. Diminished but not absent bowel tones.) - Back Back: No CVA TTP, No spinal TTP - Derm Derm: Normal color, Warm and dry - Extremities Extremities: No edema, No calf tenderness / cord - Neuro Neuro: Alert and oriented X 3, Normal speech Results - Vitals Vitals: Vital Signs - 24 hr 12/24/19 12/24/19 12/24/19 16:34 17:20 18:20 Temperature 36.9 C Heart Rate 94 81 77 Respiratory 17 18 18 Rate Blood Pressure 160/102 H 164/107 H 169/107 H O2 Saturation 96 92 97 Oxygen O2 Source Room air - Labs Labs: Laboratory Tests 12/24/19 12/24/19 12/24/19 16:52 16:52 16:52 WBC 7.1 RBC 5.29 Hgb 14.4 Hct 42.6 MCV 80.5 MCH 27.2 MCHC 33.8 RDW 12.1 Plt Count 304 MPV 7.9 Neut # (Auto) Not Reportable Lymph # (Auto) Not Reportable [place] # (Auto) Not Reportable Eos # (Auto) Not Reportable Baso # (Auto) Not Reportable Absolute Nucleated RBC Not Reportable Total Counted 100 Band Neuts % (Manual) 0 Reactive Lymphs % (Man) 10 Abnorm Lymph % (Manual) 0 Nucleated RBC % Not Reportable Neutrophils # (Manual) 3.6 Lymphocytes # (Manual) 3.1 Monocytes # (Manual) 0.4 Eosinophils # (Manual) 0.1 Basophils # (Manual) 0.1 Differential Comment MANUAL DIFFERENTIAL Platelet Estimate NORMAL (130-450,000) Platelet Morphology NORMAL APPEARANCE RBC Morph Micro Appear NORMAL APPEARANCE Sodium 134 L Potassium 3.7 Chloride 99 L Carbon Dioxide 24 Anion Gap 11.0 BUN 12 Creatinine 0.7 Estimated GFR (MDRD) 121 Glucose 273 H Lactic Acid 1.4 Calcium 8.8 Total Bilirubin 0.8 AST 22 ALT 36 Alkaline Phosphatase 57 Total Protein 7.2 Albumin 3.4 Globulin 3.8 Albumin/Globulin Ratio 0.9 L Lipase 46 Urine Color Urine Clarity Urine pH Ur Specific [place] Urine Protein Urine Glucose (UA) Urine Ketones Urine Occult Blood Urine Nitrite Urine Bilirubin Urine Urobilinogen Ur Leukocyte Esterase Urine RBC Urine WBC Ur Squamous Epith Cells Urine Bacteria Ur Microscopic Review Urine Culture Comments 12/24/19 17:55 WBC RBC Hgb Hct MCV MCH MCHC RDW Plt Count MPV Neut # (Auto) Lymph # (Auto) [place] # (Auto) Eos # (Auto) Baso # (Auto) Absolute Nucleated RBC Total Counted Band Neuts % (Manual) Reactive Lymphs % (Man) Abnorm Lymph % (Manual) Nucleated RBC % Neutrophils # (Manual) Lymphocytes # (Manual) Monocytes # (Manual) Eosinophils # (Manual) Basophils # (Manual) Differential Comment Platelet Estimate Platelet Morphology RBC Morph Micro Appear Sodium Potassium Chloride Carbon Dioxide Anion Gap BUN Creatinine Estimated GFR (MDRD) Glucose Lactic Acid Calcium Total Bilirubin AST ALT Alkaline Phosphatase Total Protein Albumin Globulin Albumin/Globulin Ratio Lipase Urine Color YELLOW Urine Clarity CLEAR Urine pH 6.0 Ur Specific [place] >=1.030 H Urine Protein 30 H Urine Glucose (UA) >=1000 H Urine Ketones NEGATIVE Urine Occult Blood TRACE-INTA Urine Nitrite NEGATIVE Urine Bilirubin NEGATIVE Urine Urobilinogen 0.2 (NORMAL) Ur Leukocyte Esterase NEGATIVE Urine RBC 0-5 Urine WBC 0-3 Ur Squamous Epith Cells NONE SEEN Urine Bacteria None Seen Ur Microscopic Review INDICATED Urine Culture Comments NOT INDICATED PD MEDICAL DECISION MAKING - ED course ED course: 44-year-old gentleman with right-sided abdominal pain for 5 days associated with nausea and now diarrhea. He was seen in [place] and those records were reviewed, the CT was normal, but the time course would be against a simple viral illness, that should have resolved by now. He felt much better after pain medications. Repeat imaging was performed given the persistent and significant right lower quadrant tenderness despite narcotic pain medication. 44-year-old gentleman now on day 5 been illness marked by diarrhea and abdominal pain. He was unable to provide a stool sample here. Review of the records from [place] shows that he had normal CT then with normal blood work except for hyperglycemia. Today repeat CT imaging was done and there are some nonspecific findings, but the one that most closely matches his clinical picture is colitis which is treated with a azithromycin. Departure - Departure Disposition: 01 Home, Self Care Clinical Impression: Colitis Abdominal pain Qualifiers: Abdominal location: right lower quadrant Qualified Code(s): R10.31 - Right lower quadrant pain Condition: Good Record reviewed to determine appropriate education?: Yes Instructions: ED Diarrhea Bacterial Prescriptions: Azithromycin 2 tab PO DAILY #4 tablet Hydrocodone/Acetaminophen [Hydrocodon-Acetaminophen 5-325] 1 - 2 each PO Q6H PRN #7 tablet PRN Reason: pain Comments: You were seen today for right-sided abdominal pain and diarrhea. The CT showed some nonspecific findings including a fatty liver but also evidence of colitis which matches the description of your illness. You were unable to provide a stool sample here so we do not have any culture data good to go on but generally a azithromycin is effective against this. Return for new or worsening symptoms or not if not better in the next 48 hours or so. Follow-up with your doctor regardless. Your blood pressure was elevated today on check into the emergency department. This does not mean that you have hypertension, it is a common phenomenon to come to the emergency department and have elevated blood pressure. I recommend that you see your primary care physician within the week to have it rechecked when you are feeling better. Do not drink or drive while taking narcotic pain medication. Note that many narcotic pain relievers also contain Tylenol/acetaminophen. Please ensure that your total dose of acetaminophen from all sources does not exceed 3 g (3000 mg) per day. You may get constipated while on this medication. Take a stool softener such as Colace twice a day while you are on it. Also add an [id number]-[id number] laxative such as senna or MiraLAX on any day that you do not have a bowel movement. If you received a narcotic pain medication or sedative while in the emergency department, do not drive for the next 24 hours.
[2019-12-24 16:59] LABS: HGB - HEMOGLOBIN 14.4 g/dL (14.0-18.0); RED CELL DISTRIBUTION WIDTH 12.1 % (12.0-15.0)
[2019-12-24 17:01] LABS: BASOPHILS % (AUTO) 0.6 %; EOSINOPHILS % (AUTO) 1.6 %; LYMPHOCYTES % (AUTO) 35.4 %; MEAN CORPUSCULAR HEMOGLOBIN 27.2 pg (27.0-31.0); MEAN CORPUSCULAR HGB CONC 33.8 g/dL (32.0-36.0); MEAN CORPUSCULAR VOLUME 80.5 fL (80.0-94.0); MEAN PLATELET VOLUME 7.9 fL (7.4-11.4); MONOCYTES % (AUTO) 7.1 %; PLT - PLATELET COUNT 304 10^3/uL (130-450); RED BLOOD COUNT 5.29 10^6/uL (4.70-6.10); WHITE BLOOD COUNT 7.1 x10^3/uL (4.8-10.8)
[2019-12-24 17:15] LABS: ABNORMAL LYMPHS % (MANUAL) 0 %; ALBUMIN 3.4 g/dL (3.2-5.5); ALBUMIN/GLOBULIN RATIO 0.9 (1.0-2.2); BAND NEUTROPHILS % (MANUAL) 0 %; BILIRUBIN,TOTAL 0.8 mg/dL (0.2-1.0); CALCIUM 8.8 mg/dL (8.5-10.3); CREATININE 0.7 mg/dL (0.6-1.2); TOTAL PROTEIN 7.2 g/dL (6.7-8.2)
[2019-12-24 17:33] LABS: BASOPHILS # (MANUAL) 0.1 10^3/uL (0-0.1); BASOPHILS % (MANUAL) 1 %; EOSINOPHILS # (MANUAL) 0.1 10^3/uL (0-0.7); LYMPHOCYTES # (MANUAL) 3.1 10^3/uL (1.5-3.5); LYMPHOCYTES % (MANUAL) 33 %; MONOCYTES # (MANUAL) 0.4 10^3/uL (0.0-1.0)
[2019-12-24 17:34] LABS: DIFFERENTIAL COMMENT MANUAL DIFFERENTIAL; PLATELET ESTIMATE, MANUAL NORMAL (130-450,000) (NORMAL); PLATELET MORPHOLOGY NORMAL APPEARANCE (NORMAL); RBC MORPHOLOGY (MULTIPLE) NORMAL APPEARANCE (NORMAL)
[2019-12-24] MEDS ORDERED: IOVERSOL 320 100 ML VIAL IVP ONE ×2 (17:51→18:13)
[2019-12-24 18:11] LABS: BILIRUBIN,URINE NEGATIVE (NEGATIVE); GLUCOSE, URINE (UA) >=1000 mg/dL (NEGATIVE); KETONES,URINE (UA) NEGATIVE (NEGATIVE); LEUKOCYTE ESTERASE, URINE NEGATIVE (NEGATIVE); NITRITE,URINE NEGATIVE (NEGATIVE); OCCULT BLOOD,URINE TRACE-INTA (NEGATIVE); PROTEIN,URINE 30 mg/dL (NEGATIVE); UROBILINOGEN,URINE 0.2 (NORMAL) E.U./dL (NORMAL)
[2019-12-24 18:12] LABS: CLARITY,URINE CLEAR (CLEAR)
[2019-12-24 18:25] LABS: BACTERIA,URINE None Seen /HPF (None Seen); RBC,URINE 0-5 /HPF (0-5); SQUAMOUS EPITHELIAL CELL,UR NONE SEEN (<= Few)
--- NOTE | 2019-12-24 18:50 | CT Report ---
Reason: Abdominal pain, right lower quadrant Procedure Date: 12/24/2019 Accession Number: [id number] / [id number] Procedure: CT - Abdomen/Pelvis W CPT Code: Final Report FULL RESULT: EXAM: CT ABDOMEN AND PELVIS EXAM DATE: 12/24/2019 06:12 PM. CLINICAL HISTORY: Abdominal pain, right lower quadrant. COMPARISONS: ABDOMEN/PELVIS W/ 04/19/2019 5:59 AM. TECHNIQUE: Routine helical CT imaging was performed through the abdomen and pelvis. IV contrast: OPTI 320 90ML. Enteric contrast: No. Reconstructions: Coronal and sagittal. In accordance with CT protocol optimization, one or more of the following dose reduction techniques were utilized for this exam: automated exposure control, adjustment of mA and/or KV based on patient size, or use of iterative reconstructive technique. FINDINGS: Lung Bases: Respiratory motion artifact. Small amount of probable atelectasis/scarring. Liver: Mildly hypoattenuating appearance diffusely. No discrete mass. Gallbladder/Bile Ducts: Unremarkable. Spleen: Unremarkable. Pancreas: Unremarkable. Adrenal Glands: Unremarkable. Kidneys: No hydronephrosis on either side. Symmetric enhancement. No discrete mass. Peritoneal Cavity/Bowel: No free air. No acute focal inflammatory change. No discrete collection. No bulky adenopathy. No free fluid. Appendix appears unremarkable and contains air within it. Incomplete distention of the colon limits assessment, although mild fairly diffuse colonic wall thickening may be present. Pelvic Organs: Urinary bladder not well assessed secondary to poor distention and mild thickening would be difficult to completely exclude. Prostate appears unremarkable. Vasculature: No aneurysms or other significant abnormality. Bones: Stable. Other: Small fat-containing umbilical hernia. IMPRESSION: 1. No bowel obstruction or acute focal inflammatory changes identified within the abdomen or pelvis. 2. Incomplete distention of the colon limits assessment, although mild fairly diffuse colonic wall thickening may be present. Correlate for the possibility of a mild diffuse colitis. 3. Hepatic steatosis. 4. Poorly distended urinary bladder limits assessment. Mild bladder wall thickening cannot be completely excluded. Recommend correlation with urinalysis. RADIA
[2019-12-24] MEDS ORDERED: HYDROcod/ACET 5/325 Prepack 4 PO STA (19:00)
[2019-12-24] MEDS ORDERED: AZITHROMYCIN 250 MG TABLET PO STA (19:00)
[2019-12-24 19:12] VITALS: BP 159/107
== END 2019-12-24 19:13 | disposition home or self-care (01) ==
LOC: ED 16:23
DX: K52.9 Noninfective gastroenteritis and colitis, unspecified (principal); K76.0 Fatty (change of) liver, not elsewhere classified; K42.9 Umbilical hernia without obstruction or gangrene; I10 Essential (primary) hypertension; E11.9 Type 2 diabetes mellitus without complications; Z79.84 Long term (current) use of oral hypoglycemic drugs
CPT/HCPCS: 36415; 74177; 80053; 81001; 83605; 83690; 85025; 96361; 96374; 99284; A9270; J1170; Q9967; 81003; 87086

== ENCOUNTER 2021-12-05 00:46 | Emergency (ER) | payer OTHER ==
--- NOTE | 2021-12-05 01:38 | XRAY Report ---
PROCEDURE: Chest 1 View X-Ray INDICATIONS: soa X 4 days TECHNIQUE: One view of the chest was acquired. COMPARISON: None. FINDINGS: Surgical changes and devices: None. Lungs and pleura: No pleural effusions or pneumothorax. There are a few indistinct asymmetric opaci ties within the left lung base. Mediastinum: Mediastinal contours appear normal. Heart size is normal. Bones and chest wall: No suspicious bony lesions. Overlying soft tissues appear unremarkable. IMPRESSION: 1. Indistinct asymmetric opacities within the left lung base are nonspecific but may reflect atypical pneumonia given clinical history. Reviewed by: Francisco Javier Childress MD on 12/05/2021 1:36 AM PST Approved by: Francisco Javier Childress MD on 12/05/2021 1:36 AM PST Station ID: [id number]
[2021-12-05 01:43] VITALS: BP 130/83
[2021-12-05] MEDS ORDERED: AMOX/CLAV 875 MG/125 MG TABLET PO STA (02:25)
[2021-12-05] MEDS ORDERED: AZITHROMYCIN 250 MG TABLET PO STA (02:26)
--- NOTE | 2021-12-05 02:27 | ED Physician Documentation ---
History of Present Illness - Stated complaint Stated Complaint: SOA - Chief complaint Chief Complaint: Resp - History obtained from History obtained from: Patient - Additonal information Additional information: 46-year-old man with pmh htn, dm, presents with shortness of breath. Past couple of days along with cough productive of brown sputum. Denies fevers. Does endorse some sore throat and nasal congestion. Patient is unvaccinated against COVID-19 and denies sick contacts.Denies chest pain, leg swelling, pleurisy. Review of Systems Ten Systems: 10 systems reviewed and negative Constitutional: reports: Fatigue. denies: Fever Cardiac: denies: Chest pain / pressure Respiratory: reports: Dyspnea, Cough PD PAST MEDICAL HISTORY - Past Medical History Cardiovascular: Hypertension Respiratory: CPAP use Endocrine/Autoimmune: Type 2 diabetes GI: None : None HEENT: None Psych: None Musculoskeletal: None Derm: None - Past Surgical History Past Surgical History: No - Present Medications Home Medications: Ambulatory Orders Medication Instructions Recorded Confirmed lisinopriL [Prinivil] 5 mg PO DAILY 04/19/19 04/19/19 Dicyclomine [Bentyl] 20 mg PO QID PRN #15 capsule 04/20/19 Simethicone [Gas Relief] 125 mg PO Q6H PRN #15 capsule 04/20/19 glipiZIDE ER [Glucotrol Xl] 5 mg PO QDBREAKFAST #20 tablet 04/20/19 Azithromycin 2 tab PO DAILY #4 tablet 12/24/19 Hydrocodone/Acetaminophen 1 - 2 each PO Q6H PRN #7 tablet 12/24/19 [Hydrocodon-Acetaminophen 5-325] Amox/Clav 875/125 [Augmentin 1 tablet PO Q12H 7 Days #14 tablet 12/05/21 875/125 Tab] Azithromycin [Zithromax Tri-Sunny] 500 mg PO QDAC 5 Days #6 tablet 12/05/21 - Allergies Allergies/Adverse Reactions: Allergies Allergy/AdvReac Type Severity Reaction Status Date / Time No Known Drug Allergies Allergy Verified 12/05/21 00:54 - Social History Does the pt smoke?: No Smoking Status: Never smoker Does the pt drink ETOH?: No Does the pt have substance abuse?: No - Immunizations Immunizations are current?: Yes - POLST Patient has POLST: No PD ED PE NORMAL - Vitals Vital signs reviewed: Yes - General General: Alert and oriented X 3, No acute distress, Well developed/nourished - HEENT HEENT: Atraumatic, PERRL, EOMI - Neck Neck: Supple, no meningeal sign - Cardiac Cardiac: RRR - Respiratory Respiratory: No respiratory distress, Other (Decreased lung sounds in left lung base) - Abdomen Abdomen: Non tender, Non distended - Back Back: No CVA TTP - Derm Derm: Normal color, Warm and dry - Extremities Extremities: No deformity, No edema - Neuro Neuro: Alert and oriented X 3, No motor deficit, No sensory deficit - Psych Psych: Normal mood, Normal affect Results - Vitals Vitals: Vital Signs - 24 hr 12/05/21 12/05/21 00:49 01:30 Temperature 36.3 C L Heart Rate 106 H 100 Respiratory 14 16 Rate Blood Pressure 127/81 H 130/83 H O2 Saturation 96 95 Oxygen O2 Source Room air PD MEDICAL DECISION MAKING - ED course ED course: Differential considered, patient with left basilar pneumonia on chest x-ray. Possible viral versus bacterial etiology. Covid swab sent. Antibiotics prescribed. Return precautions given. Patient will follow up with his primary doctor. Departure - Departure Disposition: Home, Self Care Clinical Impression: Pneumonia Condition: Good Instructions: ED Pneumonia Adult Prescriptions: Amox/Clav 875/125 [Augmentin 875/125 Tab] 1 tablet PO Q12H 7 Days #14 tablet Azithromycin [Zithromax Tri-Sunny] 500 mg PO QDAC 5 Days #6 tablet Comments: You were seen in the emergency department for evaluation of shortness of breath and cough. You have a pneumonia on chest x-ray in the left lower part of your lung. Please take your antibiotics as prescribed and follow-up with your primary doctor. A Covid test was sent which is pending and will result in 2 to 3 days. You can view the results on your patient health portal. We will call you if it is positive. Return to the emergency department if you have any new or wor sening symptoms or other concerns. Discharge Date/Time: 12/05/21 02:47
[2021-12-05] MEDS ORDERED: AZITHROMYCIN 250 MG TABLET PO ONE (02:47)
== END 2021-12-05 02:47 | disposition home or self-care (01) ==
LOC: ED 00:46
DX: U07.1 COVID-19 (principal); J12.82 Pneumonia due to coronavirus disease 2019
CPT/HCPCS: 71045; 87635; 99284; A9270; 0202U